=== PATIENT | male | born 1945 | race Caucasian/White ===

== ENCOUNTER → 2017-02-09 | Outpatient (REF) ==
[~2017-02-09] MED LIST: CIPRO 500MG TA500 MG PO; FLAGYL500 MG PO; LEVAQUIN 5500 MG/TAB PO; NORCO 325 MG-51 TAB PO; PRILOSEC 20MG20 MG PO; ULTRAM50 MG PO; VOLTAREN50 MG PO
== END ==
LOC: ZLAB.WCH 15:17
DX: Z01.89 Encounter for other specified special examinations (principal)

== ENCOUNTER → 2017-03-01 | Outpatient (REF) ==
[2017-03-01 12:31] LABS: PSA-TOTAL 0.35 ng/mL (0-4)
[2017-03-01 13:43] LABS: THYROID STIMULATING HORMONE 2.98 uIU/mL (0.465-4.680)
== END ==
LOC: ZLAB.WCH 08:59
PROVIDERS: Nurse Practitioner Family
DX: Z01.89 Encounter for other specified special examinations (principal)
CPT/HCPCS: G0103

== ENCOUNTER → 2018-11-22 | Outpatient (REF) ==
[2018-11-22 17:00] LABS: THYROID STIMULATING HORMONE 1.86 uIU/mL (0.465-4.680)
== END ==
LOC: ZLAB.WCH 16:13
PROVIDERS: Physician Assistant
DX: Z01.89 Encounter for other specified special examinations (principal)